=== PATIENT | male | born 1940 | race Caucasian/White ===

== ENCOUNTER 2017-01-30 21:45 | Emergency (ER) | payer OTHER, MEDICARE ==
[~2017-01-30 21:45] MED LIST: AMLODIPINE BES2.5 M1 PO; AMLODIPINE BESYL5 M1 PO; BRILINTA90 M1 PO; COQ10 IN OIL1 SGL PO; FISH OIL CONC1000 MG PO; FUROSEMIDE20 MG PO; GLUCOSAMINE & C1 CA2 PO; GOOD SENSE ASP325 MG PO; LOSARTAN POTASS1 TA6 PO; METOPROLOL TART25 M1 PO; PRAVACHOL20 MG PO; PRILOSEC20 MG PO; TERAZOSIN HCL10 MG PO; TOPROL XL25 MG PO; XARELTO20 M1 PO
[2017-01-30 22:03] VITALS: BP 145/89
== END 2017-01-30 23:19 | disposition home or self-care (01) ==
LOC: ED 21:45
DX: S80.821A Blister (nonthermal), right lower leg, initial encounter (principal); I25.10 Atherosclerotic heart disease of native coronary artery without angina pectoris; I10 Essential (primary) hypertension; Z88.0 Allergy status to penicillin; X58.XXXA Exposure to other specified factors, initial encounter; Y93.89 Activity, other specified; Y92.89 Other specified places as the place of occurrence of the external cause; Y99.8 Other external cause status